=== PATIENT | female | born 1950 | race Caucasian/White ===

== ENCOUNTER 2019-04-10 10:49 | Emergency (ER) | payer OTHER ==
[~2019-04-10] VITALS: Ht 160 cm; Wt 76.7 kg
[~2019-04-10 10:49] MED LIST: BAY PO; GENTAMICIN; NEU100 PO
[2019-04-10 11:26] VITALS: Ht 160 cm; Wt 76.7 kg
[2019-04-10 13:56] VITALS: BP 120/68
== END 2019-04-10 13:56 | disposition home or self-care (01) ==
LOC: ED 10:49
DX: K11.20 Sialoadenitis, unspecified (principal); J45.909 Unspecified asthma, uncomplicated; Z98.890 Other specified postprocedural states